=== PATIENT | female | born 1940 | race Two or more races ===

== ENCOUNTER → 2018-05-16 | Outpatient (CLI) | payer MEDICARE, MEDICAID | END | disposition home or self-care (01) | LOC: MAMMO 14:19 | PROVIDERS: ATTEND Specialist | DX: Z12.31 Encounter for screening mammogram for malignant neoplasm of breast (principal) | CPT/HCPCS: 77067 ==

== ENCOUNTER 2018-09-07 10:33 | Inpatient (IN) | payer MEDICARE, MEDICAID ==
[2018-09-07] VITALS (8 sets, daily range): BP systolic 115–156; BP diastolic 35–79
[~2018-09-07] VITALS: Ht 134.6 cm; Wt 82.6 kg
[2018-09-07] MEDS ORDERED: ALBUTEROL (0.083%) 2.5MG/3ML NEB HHN STA (11:44)
[2018-09-07 12:17] LABS: EOSINOPHILS % 2.2 % (0.0-5.0); HEMOGLOBIN. 13.1 g/dL (12.0-16.0); LYMPHOCYTES % 29.9 % (20.0-50.0); MEAN CORPUSCULAR HEMOGLOBIN 28.4 pg (28.0-32.0); MEAN PLATELET VOLUME 9.6 fl (7.4-10.4); MONOCYTES % 5.9 % (2.0-8.0); PLATELET 263 x1000/uL (130-400); RED CELL DISTRIBUTION WIDTH 14.6 % (11.6-14.6)
[2018-09-07 12:28] LABS: CHLORIDE 109 mEq/L (98-107)
[2018-09-07] MEDS ORDERED: LEVOFLOXACIN 500MG PREMIX 100 ML IV ONE (12:30)
[2018-09-07 12:34] LABS: PARTIAL THROMBOPLASTIN TIME 28.6 sec (23.4-31.0); PROTHROMBIN TIME 10.5 sec (9.1-11.1)
[2018-09-07] MEDS ORDERED: IPRATROPIUM/ALBUTEROL 0.5-3(2.5)MG/3ML NEB HHN PRN (13:45)
[2018-09-07 16:51] LABS: CLARITY URINE CLOUDY (CLEAR); COLOR URINE YELLOW (YELLOW); KETONES URINE NEGATIVE (NEGATIVE); LEUKOCYTE ESTERASE URINE 2+ (NEGATIVE); NITRITE URINE NEGATIVE (NEGATIVE); OCCULT BLOOD URINE NEGATIVE (NEGATIVE); PROTEIN URINE 2+ (NEGATIVE); SPECIFIC GRAVITY URINE 1.011 (1.005-1.030); UROBILINOGEN URINE 0.2 E.U./dL (0.2-1.0)
[2018-09-07] MEDS ORDERED: BUME1TAB4 PO (17:46)
[2018-09-07] MEDS ORDERED: ATOR40TA70 PO (17:46)
[2018-09-07] MEDS ORDERED: AMBR5TAB3 PO (17:46)
[2018-09-07] MEDS ORDERED: LEVO100T9 PO (17:46)
[2018-09-07] MEDS ORDERED: ATEN50TA PO (17:46)
[2018-09-07] MEDS ORDERED: BUMETANIDE 1MG/4ML VIAL IV SCH (18:00)
[2018-09-07] MEDS ORDERED: DEXTROSE 50% WATER 50ML SYRINGE IV PRN (19:15)
[2018-09-07] MEDS: BLOOD SUGAR DIAGNOSTIC STRIP TEST SCH (20:40)
[2018-09-07] MEDS: BUMETANIDE 1MG/4ML VIAL IV SCH (20:51)
[2018-09-07] MEDS: ATORVASTATIN CALCIUM 40MG TABLET PO SCH (21:01)
[2018-09-07] MEDS: LOSARTAN POTASSIUM 50 MG TABLET PO SCH (21:01)
[2018-09-07] MEDS: INSULIN LISPRO 100 UNITS/ML SUBCUT SCH (21:03)
[2018-09-08] VITALS (18 sets, daily range): BP systolic 101–136; BP diastolic 28–56
[2018-09-08] MEDS: IPRATROPIUM/ALBUTEROL 0.5-3(2.5)MG/3ML NEB HHN SCH ×2 (02:25→21:40)
[2018-09-08] MEDS: BLOOD SUGAR DIAGNOSTIC STRIP TEST SCH ×4 (06:29→21:26)
[2018-09-08] MEDS: LEVOTHYROXINE SODIUM 100MCG TABLET PO SCH (06:50)
[2018-09-08] MEDS: INSULIN LISPRO 100 UNITS/ML SUBCUT SCH ×4 (07:03→21:35)
[2018-09-08 07:16] LABS: BASOPHILS % 1.1 % (0.0-2.0); EOSINOPHILS % 2.5 % (0.0-5.0); HEMATOCRIT. 35.8 % (36.0-48.0); HEMOGLOBIN. 11.7 g/dL (12.0-16.0); LYMPHOCYTES % 33.5 % (20.0-50.0); MEAN CORPUSCULAR HEMOGLOBIN 28.4 pg (28.0-32.0); MEAN CORPUSCULAR VOLUME 86.5 fL (81.0-99.0); MEAN PLATELET VOLUME 10.5 fl (7.4-10.4); MONOCYTES % 8.3 % (2.0-8.0); NEUTROPHILS % 54.6 % (40.0-76.0); PLATELET 227 x1000/uL (130-400); RED BLOOD CELL COUNT 4.14 mill/uL (4.2-5.4); RED CELL DISTRIBUTION WIDTH 14.6 % (11.6-14.6)
[2018-09-08] MEDS: LOSARTAN POTASSIUM 50 MG TABLET PO SCH ×2 (09:00→09:26)
[2018-09-08] MEDS: BUMETANIDE 1MG/4ML VIAL IV SCH ×2 (09:25→17:26)
[2018-09-08] MEDS: DOCUSATE SODIUM 100MG CAPSULE PO SCH (10:31)
[2018-09-08] MEDS: LETAIRIS 5 MG PO SCH (17:26)
[2018-09-08] MEDS: ATORVASTATIN CALCIUM 40MG TABLET PO SCH (21:42)
[2018-09-09] VITALS (13 sets, daily range): BP systolic 102–143; BP diastolic 34–92
[2018-09-09] MEDS: IPRATROPIUM/ALBUTEROL 0.5-3(2.5)MG/3ML NEB HHN SCH ×4 (01:10→20:46)
[2018-09-09] MEDS: BLOOD SUGAR DIAGNOSTIC STRIP TEST SCH ×4 (05:50→21:17)
[2018-09-09 05:54] LABS: BASOPHILS % 0.9 % (0.0-2.0); EOSINOPHILS % 3.7 % (0.0-5.0); HEMATOCRIT. 36.1 % (36.0-48.0); MEAN CORPUSCULAR HEMOGLOBIN 28.8 pg (28.0-32.0); MEAN CORPUSCULAR VOLUME 86.8 fL (81.0-99.0); MEAN PLATELET VOLUME 10.2 fl (7.4-10.4); MONOCYTES % 9.6 % (2.0-8.0); NEUTROPHILS % 54.8 % (40.0-76.0); PLATELET 216 x1000/uL (130-400); RED BLOOD CELL COUNT 4.17 mill/uL (4.2-5.4); RED CELL DISTRIBUTION WIDTH 15.1 % (11.6-14.6)
[2018-09-09] MEDS: LEVOTHYROXINE SODIUM 100MCG TABLET PO SCH (06:15)
[2018-09-09] MEDS: BUMETANIDE 1MG/4ML VIAL IV SCH ×2 (06:16→17:07)
[2018-09-09] MEDS: LOSARTAN POTASSIUM 50 MG TABLET PO SCH (08:40)
[2018-09-09] MEDS: DOCUSATE SODIUM 100MG CAPSULE PO SCH (08:40)
[2018-09-09] MEDS: INSULIN LISPRO 100 UNITS/ML SUBCUT SCH ×4 (08:41→21:26)
[2018-09-09] MEDS: LETAIRIS 5 MG PO SCH (08:43)
[2018-09-09] MEDS: ATORVASTATIN CALCIUM 40MG TABLET PO SCH (21:26)
[2018-09-10] VITALS (14 sets, daily range): BP systolic 91–145; BP diastolic 31–73
[2018-09-10 06:06] LABS: BASOPHILS % 0.8 % (0.0-2.0); EOSINOPHILS % 7.2 % (0.0-5.0); HEMATOCRIT. 34.4 % (36.0-48.0); HEMOGLOBIN. 11.5 g/dL (12.0-16.0); LYMPHOCYTES % 29.4 % (20.0-50.0); MEAN CORPUSCULAR HEMOGLOBIN 28.8 pg (28.0-32.0); MEAN PLATELET VOLUME 10.1 fl (7.4-10.4); MONOCYTES % 10.6 % (2.0-8.0); PLATELET 203 x1000/uL (130-400); RED CELL DISTRIBUTION WIDTH 14.7 % (11.6-14.6)
[2018-09-10] MEDS: BLOOD SUGAR DIAGNOSTIC STRIP TEST SCH ×4 (06:14→20:39)
[2018-09-10] MEDS: LEVOTHYROXINE SODIUM 100MCG TABLET PO SCH (07:03)
[2018-09-10] MEDS: BUMETANIDE 1MG/4ML VIAL IV SCH (07:03)
[2018-09-10] MEDS: INSULIN LISPRO 100 UNITS/ML SUBCUT SCH ×4 (07:40→21:52)
[2018-09-10] MEDS: DOCUSATE SODIUM 100MG CAPSULE PO SCH (08:36)
[2018-09-10] MEDS: LETAIRIS 5 MG PO SCH (08:36)
[2018-09-10] MEDS: IPRATROPIUM/ALBUTEROL 0.5-3(2.5)MG/3ML NEB HHN SCH ×3 (13:38→20:50)
[2018-09-10] MEDS: ATORVASTATIN CALCIUM 40MG TABLET PO SCH (21:58)
[2018-09-11] VITALS (11 sets, daily range): BP systolic 107–166; BP diastolic 40–65
[2018-09-11] MEDS: IPRATROPIUM/ALBUTEROL 0.5-3(2.5)MG/3ML NEB HHN SCH ×2 (00:59→08:15)
[2018-09-11] MEDS: LEVOTHYROXINE SODIUM 100MCG TABLET PO SCH (06:50)
[2018-09-11 06:56] LABS: EOSINOPHILS % 6.4 % (0.0-5.0); HEMATOCRIT. 34.5 % (36.0-48.0); HEMOGLOBIN. 11.6 g/dL (12.0-16.0); LYMPHOCYTES % 31.6 % (20.0-50.0); MEAN CORPUSCULAR HEMOGLOBIN 28.9 pg (28.0-32.0); MEAN PLATELET VOLUME 10.2 fl (7.4-10.4); MONOCYTES % 8.9 % (2.0-8.0); NEUTROPHILS % 52.1 % (40.0-76.0); PLATELET 203 x1000/uL (130-400); RED BLOOD CELL COUNT 4.01 mill/uL (4.2-5.4); RED CELL DISTRIBUTION WIDTH 14.6 % (11.6-14.6)
[2018-09-11] MEDS: BLOOD SUGAR DIAGNOSTIC STRIP TEST SCH ×2 (07:00→11:50)
[2018-09-11] MEDS: INSULIN LISPRO 100 UNITS/ML SUBCUT SCH (07:20)
[2018-09-11] MEDS: LETAIRIS 5 MG PO SCH (09:00)
[2018-09-11] MEDS: DOCUSATE SODIUM 100MG CAPSULE PO SCH (09:00)
[2018-09-11] MEDS ORDERED: MIDAZOLAM HCL 2 MG/2 ML VIAL ONE (10:05)
[2018-09-11] MEDS ORDERED: FENTANYL CITRATE/PF 50MCG/ML 2ML VIAL ONE (10:05)
[2018-09-11] MEDS ORDERED: TETRACAINE/BENZOCAINE/BUTAMBEN 20 GM SPRAY MM ONE (10:06)
[2018-09-11] MEDS ORDERED: LIDOCAINE HCL 2% JELLY 5ML ONE (10:06)
[2018-09-11] MEDS ORDERED: INSULIN LISPRO 100 UNITS/ML SUBCUT SCH (12:20)
== END 2018-09-11 15:30 | disposition home or self-care (01) | DRG 133 ==
LOC: ER 12:01 → EDBEDREQ 12:05 → EDBEDREQTM 12:05 → CANRESERV 12:09 → ENRESERV 12:09 → EDBEDREQSVC 13:00 → EDBEDREQTM 13:00 → ENRESERV 16:06 → 3WST 16:53
PROVIDERS: ADMIT Family Medicine Adult Medicine; ATTEND Family Medicine Adult Medicine
PROC: B246ZZ4 Ultrasonography of Right and Left Heart, Transesophageal (ICD-10-PCS; principal; 2018-09-11)
PROC: B24CZZ4 Ultrasonography of Pericardium, Transesophageal (ICD-10-PCS; 2018-09-11)
DX: J96.00 Acute respiratory failure, unspecified whether with hypoxia or hypercapnia (principal); N17.9 Acute kidney failure, unspecified; I50.33 Acute on chronic diastolic (congestive) heart failure; I13.0 Hypertensive heart and chronic kidney disease with heart failure and stage 1 through stage 4 chronic kidney disease, or unspecified chronic kidney disease; I27.20 Pulmonary hypertension, unspecified; I31.3 Pericardial effusion (noninflammatory); N18.3 Chronic kidney disease, stage 3 (moderate); E03.9 Hypothyroidism, unspecified; E11.22 Type 2 diabetes mellitus with diabetic chronic kidney disease; N39.0 Urinary tract infection, site not specified; R91.8 Other nonspecific abnormal finding of lung field; E78.5 Hyperlipidemia, unspecified; I34.0 Nonrheumatic mitral (valve) insufficiency; J45.909 Unspecified asthma, uncomplicated; K59.00 Constipation, unspecified; R00.1 Bradycardia, unspecified; Z79.4 Long term (current) use of insulin; Z82.49 Family history of ischemic heart disease and other diseases of the circulatory system; Z83.3 Family history of diabetes mellitus; Z90.710 Acquired absence of both cervix and uterus
CPT/HCPCS: 36415; 71045; 76770; 78580; 80048; 80061; 82962; 83036; 83605; 83735; 83880; 84132; 84443; 84484; 85379; 86850; 86900; 93005; 93306; 93312; 93970; 94640; 97162; 97535; J1815; J1956; J2250; J3010; J3490; J7611; J7620

== ENCOUNTER 2018-10-17 13:41 | Inpatient (IN) | payer MEDICARE, MEDICAID ==
[~2018-10-17] VITALS: Ht 134.6 cm; Wt 83.9 kg
[~2018-10-17 13:41] MED LIST: AMBR5TAB3 PO; ATEN50TA PO; ATOR40TA70 PO; BUME1TAB4 PO; LEVO100T9 PO
[2018-10-17 16:34] LABS: EOSINOPHILS % 3.1 % (0.0-5.0); HEMATOCRIT. 32.9 % (36.0-48.0); HEMOGLOBIN. 10.8 g/dL (12.0-16.0); MEAN CORPUSCULAR HEMOGLOBIN 28.8 pg (28.0-32.0); MEAN CORPUSCULAR VOLUME 87.7 fL (81.0-99.0); MEAN PLATELET VOLUME 10.7 fl (7.4-10.4); NEUTROPHILS % 50.9 % (40.0-76.0); PLATELET 155 x1000/uL (130-400); RED BLOOD CELL COUNT 3.75 mill/uL (4.2-5.4); RED CELL DISTRIBUTION WIDTH 14.8 % (11.6-14.6)
[2018-10-17 16:38] LABS: CHLORIDE 110 mEq/L (98-107)
[2018-10-17] MEDS ORDERED: ENALAPRIL 2.5MG/2ML VIAL 2ML IV ONE (17:15)
[2018-10-17] MEDS ORDERED: FUROSEMIDE 40MG/4ML VIAL IVP ONE (17:15)
[2018-10-17] MEDS ORDERED: LEVOFLOXACIN 750MG PREMIX 150 ML IV ONE (17:30)
[2018-10-17] MEDS ORDERED: GUAIFENESIN 200MG/10ML SUGAR FREE UDC PO PRN (21:45)
[2018-10-17] MEDS ORDERED: DIPHENHYDRAMINE 50MG/ML VIAL IV PRN (21:45)
[2018-10-17] MEDS ORDERED: IPRATROPIUM/ALBUTEROL 0.5-3(2.5)MG/3ML NEB INH PRN (21:45)
[2018-10-17] MEDS ORDERED: CLONIDINE 0.1MG TABLET PO PRN (21:45)
[2018-10-17] MEDS ORDERED: ONDANSETRON HCL 4MG/2ML INJ IV PRN (21:45)
[2018-10-17] MEDS ORDERED: ACETAMINOPHEN 325MG TABLET PO PRN (21:45)
[2018-10-17] MEDS ORDERED: MAGNESIUM/ALUMINUM HYDROXIDE/SIMETHICONE 30ML UDC PO PRN (21:45)
[2018-10-17] MEDS ORDERED: HYDROCODONE/APAP 7.5/325MG 1 TAB TABLET PO PRN (21:45)
[2018-10-17] MEDS ORDERED: HYDROCODONE/ACETAMINOPHEN 5/325MG TABLET PO PRN (21:45)
[2018-10-18 00:09] VITALS: BP 114/43
[2018-10-18 04:00] VITALS: BP 122/41
[2018-10-18 06:30] LABS: BASOPHILS % 1.1 % (0.0-2.0); EOSINOPHILS % 5.1 % (0.0-5.0); HEMOGLOBIN. 10.2 g/dL (12.0-16.0); LYMPHOCYTES % 36.3 % (20.0-50.0); MEAN CORPUSCULAR HEMOGLOBIN 29.5 pg (28.0-32.0); MEAN CORPUSCULAR VOLUME 86.7 fL (81.0-99.0); MEAN PLATELET VOLUME 10.4 fl (7.4-10.4); MONOCYTES % 11.3 % (2.0-8.0); NEUTROPHILS % 46.2 % (40.0-76.0); PLATELET 141 x1000/uL (130-400); RED BLOOD CELL COUNT 3.46 mill/uL (4.2-5.4); RED CELL DISTRIBUTION WIDTH 14.5 % (11.6-14.6)
[2018-10-18] MEDS: BLOOD SUGAR DIAGNOSTIC STRIP TEST SCH ×3 (06:49→21:17)
[2018-10-18 08:00] VITALS: BP 127/41
[2018-10-18] MEDS ORDERED: FUROSEMIDE 40MG/4ML VIAL IVP SCH (09:00)
[2018-10-18] MEDS: LEVOTHYROXINE SODIUM 100MCG TABLET PO SCH (10:29)
[2018-10-18] MEDS: ATENOLOL 50 MG TABLET PO SCH (10:30)
[2018-10-18] MEDS: BUMETANIDE 1MG/4ML VIAL IV SCH ×2 (10:30→17:56)
[2018-10-18] MEDS: CEFTRIAXONE 1 G PREMIX 50 ML IV SCH (11:25)
[2018-10-18 12:00] VITALS: BP 116/56
[2018-10-18] MEDS: AZITHROMYCIN 500 MG in DEXT 5% WATER 250 ML IV SCH (12:03)
[2018-10-18] MEDS ORDERED: INSU100I28 SQ (12:08)
[2018-10-18] MEDS ORDERED: INSU100C6 SQ (12:09)
[2018-10-18] MEDS ORDERED: DEXTROSE 50% WATER 50ML SYRINGE IV PRN (12:30)
[2018-10-18] MEDS: INSULIN LISPRO 100 UNITS/ML SUBCUT SCH ×3 (13:15→21:00)
[2018-10-18 14:02] LABS: CHLORIDE 112 mEq/L (98-107)
[2018-10-18 14:16] LABS: PHOSPHORUS 4.3 mg/dL (2.5-4.9)
[2018-10-18 14:17] LABS: LDL CHOLESTEROL 39 mg/dL (5-100)
[2018-10-18 14:19] LABS: HDL CHOLESTEROL 56 mg/dL (40-59); T4 FREE 1.41 ng/dL (0.76-1.46)
[2018-10-18] MEDS: DOCUSATE SODIUM 100MG CAPSULE PO PRN (15:33)
[2018-10-18 16:00] VITALS: BP_SYST 112; BP_DIAS 50; BP_DIAS 60
[2018-10-18 20:00] VITALS: BP 113/40
[2018-10-18] MEDS: AMBRISENTAN PO SCH (20:50)
[2018-10-18] MEDS: ATORVASTATIN CALCIUM 20MG TABLET PO SCH (21:19)
[2018-10-18] MEDS: INSULIN GLARGINE UD 100 UNITS/ML SYR SUBCUT SCH (21:25)
[2018-10-18] MEDS: IPRATROPIUM/ALBUTEROL 0.5-3(2.5)MG/3ML NEB HHN SCH (21:32)
[2018-10-19] VITALS (7 sets, daily range): BP systolic 90–116; BP diastolic 37–48
[2018-10-19] MEDS: IPRATROPIUM/ALBUTEROL 0.5-3(2.5)MG/3ML NEB HHN SCH ×4 (01:59→20:03)
[2018-10-19] MEDS: LEVOTHYROXINE SODIUM 100MCG TABLET PO SCH (06:43)
[2018-10-19] MEDS: BUMETANIDE 1MG/4ML VIAL IV SCH ×2 (06:44→17:07)
[2018-10-19 07:00] LABS: EOSINOPHILS % 4.4 % (0.0-5.0); HEMATOCRIT. 31.6 % (36.0-48.0); HEMOGLOBIN. 10.7 g/dL (12.0-16.0); LYMPHOCYTES % 40.7 % (20.0-50.0); MEAN CORPUSCULAR HEMOGLOBIN 29.2 pg (28.0-32.0); MEAN CORPUSCULAR VOLUME 86.6 fL (81.0-99.0); MEAN PLATELET VOLUME 9.9 fl (7.4-10.4); MONOCYTES % 10.8 % (2.0-8.0); NEUTROPHILS % 43.1 % (40.0-76.0); PLATELET 160 x1000/uL (130-400); RED BLOOD CELL COUNT 3.65 mill/uL (4.2-5.4); RED CELL DISTRIBUTION WIDTH 14.5 % (11.6-14.6)
[2018-10-19] MEDS: INSULIN LISPRO 100 UNITS/ML SUBCUT SCH ×4 (09:11→21:16)
[2018-10-19] MEDS: AMBRISENTAN PO SCH (09:12)
[2018-10-19] MEDS: CEFTRIAXONE 1 G PREMIX 50 ML IV SCH (09:13)
[2018-10-19] MEDS: ATENOLOL 50 MG TABLET PO SCH (09:13)
[2018-10-19] MEDS: AZITHROMYCIN 500 MG in DEXT 5% WATER 250 ML IV SCH (10:11)
[2018-10-19] MEDS: BLOOD SUGAR DIAGNOSTIC STRIP TEST SCH ×3 (12:37→21:10)
[2018-10-19] MEDS: DOCUSATE SODIUM 100MG CAPSULE PO PRN (21:07)
[2018-10-19] MEDS: ATORVASTATIN CALCIUM 20MG TABLET PO SCH (21:07)
[2018-10-19] MEDS: INSULIN GLARGINE UD 100 UNITS/ML SYR SUBCUT SCH (21:16)
[2018-10-19] MEDS ORDERED: ZOLPIDEM TARTRATE 5MG TABLET PO PRN (22:00)
[2018-10-20] MEDS: IPRATROPIUM/ALBUTEROL 0.5-3(2.5)MG/3ML NEB HHN SCH ×3 (01:04→20:04)
[2018-10-20 04:00] VITALS: BP 121/48
[2018-10-20] MEDS: LEVOTHYROXINE SODIUM 100MCG TABLET PO SCH (06:29)
[2018-10-20] MEDS: BUMETANIDE 1MG/4ML VIAL IV SCH ×2 (06:29→17:57)
[2018-10-20] MEDS: INSULIN LISPRO 100 UNITS/ML SUBCUT SCH ×4 (06:38→22:09)
[2018-10-20] MEDS: BLOOD SUGAR DIAGNOSTIC STRIP TEST SCH ×4 (06:38→21:00)
[2018-10-20 06:41] LABS: EOSINOPHILS % 6.4 % (0.0-5.0); HEMATOCRIT. 30.9 % (36.0-48.0); HEMOGLOBIN. 10.2 g/dL (12.0-16.0); LYMPHOCYTES % 41.1 % (20.0-50.0); MEAN CORPUSCULAR HEMOGLOBIN 28.9 pg (28.0-32.0); MEAN CORPUSCULAR VOLUME 87.4 fL (81.0-99.0); MEAN PLATELET VOLUME 10.5 fl (7.4-10.4); MONOCYTES % 10.7 % (2.0-8.0); NEUTROPHILS % 40.8 % (40.0-76.0); PLATELET 153 x1000/uL (130-400); RED BLOOD CELL COUNT 3.54 mill/uL (4.2-5.4); RED CELL DISTRIBUTION WIDTH 15.1 % (11.6-14.6)
[2018-10-20 08:08] VITALS: BP 125/52
[2018-10-20] MEDS: AMBRISENTAN PO SCH (08:35)
[2018-10-20] MEDS ORDERED: ATENOLOL 50 MG TABLET PO SCH (09:00)
[2018-10-20] MEDS: CEFTRIAXONE 1 G PREMIX 50 ML IV SCH (09:19)
[2018-10-20] MEDS: AZITHROMYCIN 500 MG in DEXT 5% WATER 250 ML IV SCH (10:21)
[2018-10-20 12:08] VITALS: BP 106/35
[2018-10-20 16:04] VITALS: BP 120/41
[2018-10-20 20:00] VITALS: BP 123/45
[2018-10-20] MEDS: AMLODIPINE 2.5MG TABLET PO SCH (21:00)
[2018-10-20] MEDS: ATENOLOL 25MG TABLET PO SCH (21:00)
[2018-10-20] MEDS: ATORVASTATIN CALCIUM 20MG TABLET PO SCH (22:08)
[2018-10-20] MEDS: INSULIN GLARGINE UD 100 UNITS/ML SYR SUBCUT SCH (22:09)
[2018-10-21] VITALS: BP 114/44
[2018-10-21] MEDS: IPRATROPIUM/ALBUTEROL 0.5-3(2.5)MG/3ML NEB HHN SCH ×4 (01:57→20:46)
[2018-10-21 04:00] VITALS: BP 125/55
[2018-10-21] MEDS: BLOOD SUGAR DIAGNOSTIC STRIP TEST SCH ×4 (07:20→21:00)
[2018-10-21 08:06] LABS: BASOPHILS % 1.2 % (0.0-2.0); EOSINOPHILS % 6.4 % (0.0-5.0); HEMATOCRIT. 32.9 % (36.0-48.0); LYMPHOCYTES % 35.6 % (20.0-50.0); MEAN CORPUSCULAR HEMOGLOBIN 29.4 pg (28.0-32.0); MEAN CORPUSCULAR VOLUME 87.7 fL (81.0-99.0); MONOCYTES % 9.8 % (2.0-8.0); RED BLOOD CELL COUNT 3.75 mill/uL (4.2-5.4); RED CELL DISTRIBUTION WIDTH 14.8 % (11.6-14.6)
[2018-10-21 09:51] LABS: MEAN PLATELET VOLUME 10.5 fl (7.4-10.4); PLATELET 165 x1000/uL (130-400)
[2018-10-21] MEDS: AMBRISENTAN PO SCH (11:24)
[2018-10-21] MEDS: LEVOTHYROXINE SODIUM 100MCG TABLET PO SCH (11:24)
[2018-10-21] MEDS: AMLODIPINE 2.5MG TABLET PO SCH ×2 (11:26→21:12)
[2018-10-21] MEDS: ATENOLOL 25MG TABLET PO SCH ×2 (11:27→21:12)
[2018-10-21] MEDS: BUMETANIDE 1MG/4ML VIAL IV SCH ×2 (11:30→17:15)
[2018-10-21] MEDS: CEFTRIAXONE 1 G PREMIX 50 ML IV SCH (11:32)
[2018-10-21] MEDS: INSULIN LISPRO 100 UNITS/ML SUBCUT SCH ×4 (11:44→21:14)
[2018-10-21 12:55] VITALS: BP 119/41
[2018-10-21] MEDS: AZITHROMYCIN 500 MG TABLET PO SCH (15:50)
[2018-10-21 16:48] VITALS: BP 111/48
[2018-10-21 20:07] VITALS: BP 115/46
[2018-10-21] MEDS: ATORVASTATIN CALCIUM 20MG TABLET PO SCH (21:09)
[2018-10-21] MEDS: INSULIN GLARGINE UD 100 UNITS/ML SYR SUBCUT SCH (21:15)
[2018-10-22 00:38] VITALS: BP 102/39
[2018-10-22] MEDS: IPRATROPIUM/ALBUTEROL 0.5-3(2.5)MG/3ML NEB HHN SCH ×4 (01:00→21:29)
[2018-10-22 04:00] VITALS: BP 119/51
[2018-10-22] MEDS: BUMETANIDE 1MG/4ML VIAL IV SCH ×2 (06:42→17:52)
[2018-10-22] MEDS: BLOOD SUGAR DIAGNOSTIC STRIP TEST SCH ×4 (06:43→20:38)
[2018-10-22] MEDS: LEVOTHYROXINE SODIUM 100MCG TABLET PO SCH (06:43)
[2018-10-22] MEDS: DOCUSATE SODIUM 100MG CAPSULE PO PRN (07:00)
[2018-10-22 07:50] LABS: BASOPHILS % 1.2 % (0.0-2.0); EOSINOPHILS % 6.8 % (0.0-5.0); LYMPHOCYTES % 38.5 % (20.0-50.0); MEAN CORPUSCULAR VOLUME 87.2 fL (81.0-99.0); MEAN PLATELET VOLUME 10.3 fl (7.4-10.4); MONOCYTES % 10.2 % (2.0-8.0); NEUTROPHILS % 43.3 % (40.0-76.0); PLATELET 190 x1000/uL (130-400); RED BLOOD CELL COUNT 3.79 mill/uL (4.2-5.4); RED CELL DISTRIBUTION WIDTH 14.6 % (11.6-14.6)
[2018-10-22] MEDS: INSULIN LISPRO 100 UNITS/ML SUBCUT SCH ×4 (07:50→20:37)
[2018-10-22 08:00] VITALS: BP 130/47
[2018-10-22] MEDS: AZITHROMYCIN 500 MG TABLET PO SCH (08:40)
[2018-10-22] MEDS: AMLODIPINE 2.5MG TABLET PO SCH ×2 (08:40→21:00)
[2018-10-22] MEDS: AMBRISENTAN PO SCH (08:40)
[2018-10-22] MEDS: CEFTRIAXONE 1 G PREMIX 50 ML IV SCH (10:23)
[2018-10-22] MEDS: ATENOLOL 25MG TABLET PO SCH ×2 (10:35→21:00)
[2018-10-22 12:00] VITALS: BP 101/45
[2018-10-22 20:00] VITALS: BP 96/43
[2018-10-22] MEDS: ATORVASTATIN CALCIUM 20MG TABLET PO SCH (20:36)
[2018-10-22 20:40] VITALS: BP 91/47
[2018-10-22] MEDS: INSULIN GLARGINE UD 100 UNITS/ML SYR SUBCUT SCH (22:36)
[2018-10-23] VITALS: BP 119/56
[2018-10-23] MEDS: IPRATROPIUM/ALBUTEROL 0.5-3(2.5)MG/3ML NEB HHN SCH ×4 (01:25→22:05)
[2018-10-23 04:00] VITALS: BP 118/48
[2018-10-23] MEDS: BUMETANIDE 1MG/4ML VIAL IV SCH (06:16)
[2018-10-23] MEDS: LEVOTHYROXINE SODIUM 100MCG TABLET PO SCH (06:16)
[2018-10-23 06:37] LABS: EOSINOPHILS % 5.6 % (0.0-5.0); HEMATOCRIT. 30.3 % (36.0-48.0); HEMOGLOBIN. 10.1 g/dL (12.0-16.0); LYMPHOCYTES % 38.5 % (20.0-50.0); MEAN CORPUSCULAR HEMOGLOBIN 28.9 pg (28.0-32.0); MEAN CORPUSCULAR VOLUME 86.8 fL (81.0-99.0); MEAN PLATELET VOLUME 10.3 fl (7.4-10.4); MONOCYTES % 9.9 % (2.0-8.0); PLATELET 176 x1000/uL (130-400); RED BLOOD CELL COUNT 3.49 mill/uL (4.2-5.4)
[2018-10-23 07:12] LABS: CHLORIDE 107 mEq/L (98-107)
[2018-10-23] MEDS: BLOOD SUGAR DIAGNOSTIC STRIP TEST SCH ×4 (07:20→20:47)
[2018-10-23] MEDS: INSULIN LISPRO 100 UNITS/ML SUBCUT SCH ×4 (07:50→20:46)
[2018-10-23 08:04] VITALS: BP 134/61
[2018-10-23] MEDS: AMLODIPINE 2.5MG TABLET PO SCH ×2 (08:43→20:47)
[2018-10-23] MEDS: AZITHROMYCIN 500 MG TABLET PO SCH (08:44)
[2018-10-23] MEDS: ATENOLOL 25MG TABLET PO SCH ×2 (08:44→20:48)
[2018-10-23] MEDS: AMBRISENTAN PO SCH (08:45)
[2018-10-23] MEDS: CEFTRIAXONE 1 G PREMIX 50 ML IV SCH (10:31)
[2018-10-23 12:37] VITALS: BP 145/59
[2018-10-23 16:18] VITALS: BP 118/47
[2018-10-23] MEDS: DOCUSATE SODIUM 100MG CAPSULE PO SCH (17:00)
[2018-10-23 20:00] VITALS: BP 111/44
[2018-10-23] MEDS: ATORVASTATIN CALCIUM 20MG TABLET PO SCH (20:39)
[2018-10-23] MEDS ORDERED: POLYETHYLENE GLYCOL 3350 (17GM) 1 DOSE PACK PO SCH (21:00)
[2018-10-23] MEDS: INSULIN GLARGINE UD 100 UNITS/ML SYR SUBCUT SCH (22:00)
[2018-10-24] VITALS: BP 124/51
[2018-10-24 04:00] VITALS: BP 113/45
[2018-10-24] MEDS: IPRATROPIUM/ALBUTEROL 0.5-3(2.5)MG/3ML NEB HHN SCH ×2 (04:28→11:51)
[2018-10-24 06:30] LABS: BASOPHILS % 1.4 % (0.0-2.0); EOSINOPHILS % 4.3 % (0.0-5.0); HEMATOCRIT. 32.3 % (36.0-48.0); HEMOGLOBIN. 10.6 g/dL (12.0-16.0); LYMPHOCYTES % 37.8 % (20.0-50.0); MEAN CORPUSCULAR HEMOGLOBIN 28.6 pg (28.0-32.0); MEAN PLATELET VOLUME 10.1 fl (7.4-10.4); MONOCYTES % 9.1 % (2.0-8.0); NEUTROPHILS % 47.4 % (40.0-76.0); PLATELET 182 x1000/uL (130-400); RED BLOOD CELL COUNT 3.72 mill/uL (4.2-5.4); RED CELL DISTRIBUTION WIDTH 14.5 % (11.6-14.6)
[2018-10-24] MEDS: LEVOTHYROXINE SODIUM 100MCG TABLET PO SCH (06:54)
[2018-10-24] MEDS: INSULIN LISPRO 100 UNITS/ML SUBCUT SCH ×2 (06:56→13:36)
[2018-10-24] MEDS: BLOOD SUGAR DIAGNOSTIC STRIP TEST SCH ×2 (06:56→11:53)
[2018-10-24] MEDS ORDERED: BUMETANIDE 1MG/4ML VIAL IV SCH ×2 (09:00→17:00)
[2018-10-24] MEDS: DOCUSATE SODIUM 100MG CAPSULE PO SCH (09:06)
[2018-10-24] MEDS: AMLODIPINE 2.5MG TABLET PO SCH (09:06)
[2018-10-24] MEDS: AMBRISENTAN PO SCH (09:07)
[2018-10-24] MEDS: ATENOLOL 25MG TABLET PO SCH (09:07)
[2018-10-24 12:00] VITALS: BP 129/51
[2018-10-24 13:20] VITALS: BP 129/51
== END 2018-10-24 14:40 | disposition home or self-care (01) | DRG 139 ==
LOC: ER 15:50 → 6WST 17:23 → EDBEDREQTM 17:26 → EDBEDREQ 17:26 → ENRESERV 21:37
PROVIDERS: ADMIT Specialist; ATTEND Specialist
DX: J18.1 Lobar pneumonia, unspecified organism (principal); J96.00 Acute respiratory failure, unspecified whether with hypoxia or hypercapnia; I50.33 Acute on chronic diastolic (congestive) heart failure; N17.9 Acute kidney failure, unspecified; E11.22 Type 2 diabetes mellitus with diabetic chronic kidney disease; I13.0 Hypertensive heart and chronic kidney disease with heart failure and stage 1 through stage 4 chronic kidney disease, or unspecified chronic kidney disease; I27.21 Secondary pulmonary arterial hypertension; R26.9 Unspecified abnormalities of gait and mobility; R00.1 Bradycardia, unspecified; E78.5 Hyperlipidemia, unspecified; E03.9 Hypothyroidism, unspecified; N18.9 Chronic kidney disease, unspecified; D64.9 Anemia, unspecified; J45.909 Unspecified asthma, uncomplicated; Z79.4 Long term (current) use of insulin; Z82.49 Family history of ischemic heart disease and other diseases of the circulatory system; Z83.3 Family history of diabetes mellitus; Z79.899 Other long term (current) drug therapy; Z90.710 Acquired absence of both cervix and uterus
CPT/HCPCS: 36415; 71045; 71250; 76770; 78582; 80048; 80061; 82962; 83735; 83880; 84100; 84145; 84439; 84443; 84484; 93005; 93306; 93970; 94640; 97162; 97166; 99285; A9558; J0456; J0696; J1815; J1940; J1956; J3490; J7040; J7050; J7060; J7620

== ENCOUNTER → 2018-10-31 | Outpatient (CLI) | payer MEDICARE, MEDICAID ==
[~2018-10-31] MED LIST changes: -ATEN50TA PO; -ATOR40TA70 PO; -BUME1TAB4 PO; +INSU100C6 SQ; +INSU100I28 SQ
== END | disposition home or self-care (01) ==
LOC: NM 12:41
PROVIDERS: ATTEND Internal Medicine Critical Care Medicine
DX: I51.7 Cardiomegaly (principal)
CPT/HCPCS: 71046; 78582; A9540; A9558; C1893